=== PATIENT | female | born 1990 | race Caucasian/White ===

== ENCOUNTER 2017-10-30 23:42 | Emergency (ER) | payer MEDICAID ==
[~2017-10-30] VITALS: Ht 160 cm; Wt 68.2 kg
[2017-10-30 23:43] VITALS: BP 124/86
[2017-10-31 00:04] LABS: BASOPHILS % (AUTO) 0.8 % (0.0-2.0); HEMATOCRIT 41.2 % (36-46); HEMOGLOBIN 14.2 g/dL (12.0-16.0); MEAN CORPUSCULAR HEMOGLOBIN 31.6 pg (26.0-34.0); MEAN CORPUSCULAR HGB CONC 34.4 G/dL (31.0-37.0); MEAN CORPUSCULAR VOLUME 92 fL (80-100); MONOCYTES # (AUTO) 0.8 K/uL (0.1-1.0); MONOCYTES % (AUTO) 8.1 % (2.0-9.0); NEUTROPHILS # (AUTO) 6.6 K/uL (1.8-7.7); NEUTROPHILS % (AUTO) 69.1 % (40.0-70.0); PLATELET COUNT (AUTO) 335 K/uL (150-450); RED BLOOD CELL COUNT(AUTO) 4.49 MIL/uL (4.00-5.20); RED CELL DISTRIBUTION WIDTH 13.4 % (11.5-14.5)
[2017-10-31 00:20] LABS: ANION GAP 5 mmol/L (8-16); CALCIUM, TOTAL 8.4 mg/dL (8.8-10.5); CARBON DIOXIDE 31 mmol/L (22-29); CHLORIDE 103 mmol/L (98-107); CREATININE 0.66 mg/dL (0.60-1.30); GLOMERULAR FILTR. RATE CALC > 60 mL/min (>60); GLUCOSE,RANDOM 109 mg/dL (70-110); POTASSIUM 3.8 mmol/L (3.5-5.1); SODIUM SERUM 139 mmol/L (136-145); UREA NITROGEN, BLOOD 11 mg/dL (7-18)
[2017-10-31 00:26] LABS: ALANINE AMINOTRANSFERASE 20 U/L (12-78); ALBUMIN 3.6 g/dL (3.4-5.0); ALKALINE PHOSPHATASE 78 U/L (46-116); ASPARTATE AMINOTRANSFERASE 22 U/L (15-37); BILIRUBIN,TOTAL 0.1 mg/dL (0.1-1.0); LIPASE 103 U/L (73-393); TOTAL PROTEIN, SERUM 7.1 g/dL (6.4-8.2)
[2017-10-31 01:56] LABS: APPEARANCE,URINE CLOUDY (CLEAR); BILIRUBIN,URINE NEGATIVE (NEGATIVE); GLUCOSE, URINE (UA) NEGATIVE (NEGATIVE); KETONES,URINE NEGATIVE (NEGATIVE); LEUKOCYTE ESTERASE ,URINE NEGATIVE (NEGATIVE); NITRATE,URINE POSITIVE (NEGATIVE); OCCULT BLOOD,URINE NEGATIVE (NEGATIVE); PH,URINE 7.5 (5.0-8.0); PROTEIN,URINE NEGATIVE (NEGATIVE); UROBILINOGEN,URINE 0.2 mg/dL (<=1.0)
[2017-10-31 02:19] LABS: BACTERIA,URINE Many /HPF (None Seen)
[2017-10-31 02:20] LABS: RBC,URINE None Seen /HPF (0-2); SQUAMOUS EPITHELIAL CELL,UR Moderate /LPF (None Seen); WBC,URINE 0-2 /HPF (0-5)
== END 2017-10-31 02:26 | disposition left against medical advice (07) ==
LOC: EMS 23:43
DX: Z53.21 Procedure and treatment not carried out due to patient leaving prior to being seen by health care provider (principal)
CPT/HCPCS: 87086; 99281

== ENCOUNTER 2018-11-01 20:51 | Inpatient (IN) | payer OTHER ==
[~2018-11-01] VITALS: Ht 160 cm; Wt 81.7 kg
[2018-11-01] MEDS ORDERED: RINGERS SOLUTION,LACTATED 1,000 ML IV PRN (21:46)
[2018-11-01] MEDS ORDERED: OXYTOCIN 30 UNITS/LACT RINGERS 500 ML IV ONE (21:46)
[2018-11-01 21:51] VITALS: BP 126/70
[2018-11-01] MEDS ORDERED: RANI150C4 PO (21:55)
[2018-11-01] MEDS ORDERED: PREN1TAB80 PO (21:56)
[2018-11-01] MEDS ORDERED: METOCLOPRAMIDE HCL 5 MG/ML 2 ML VIAL IVP PRN (22:00)
[2018-11-01] MEDS ORDERED: CITRIC ACID/SODIUM CITRATE 30 ML SOLUTION UDCUP PO PRN (22:00)
[2018-11-01] MEDS: RINGERS SOLUTION,LACTATED 1,000 ML IV SCH (22:19)
[2018-11-01 22:45] LABS: BASOPHILS % (AUTO) 0.5 % (0.0-2.0); EOSINOPHILS % (AUTO) 0.5 % (1.0-6.0); HEMOGLOBIN 11.3 g/dL (12.0-16.0); LYMPHOCYTES # (AUTO) 1.5 K/uL (1.0-4.8); LYMPHOCYTES % (AUTO) 14.9 % (22.0-44.0); MEAN CORPUSCULAR HEMOGLOBIN 29.3 pg (26.0-34.0); MEAN CORPUSCULAR HGB CONC 33.1 G/dL (31.0-37.0); MEAN CORPUSCULAR VOLUME 89 fL (80-100); MONOCYTES # (AUTO) 0.9 K/uL (0.1-1.0); MONOCYTES % (AUTO) 9.2 % (2.0-9.0); NEUTROPHILS # (AUTO) 7.4 K/uL (1.8-7.7); NEUTROPHILS % (AUTO) 74.9 % (40.0-70.0); PLATELET COUNT (AUTO)-OB 273 K/uL (150-450); RED BLOOD CELL COUNT(AUTO) 3.84 MIL/uL (4.00-5.20); RED CELL DISTRIBUTION WIDTH 14.6 % (11.5-14.5)
[2018-11-02] MEDS: RINGERS SOLUTION,LACTATED 1,000 ML IV SCH ×3 (00:16→10:41)
[2018-11-02] MEDS ORDERED: MISOPROSTOL 25 MCG TABLET PO ONE ×2 (00:30→04:45)
[2018-11-02] MEDS: FentaNYL CITRATE-PF 100 MCG/2 ML VIAL IVP PRN ×3 (04:44→07:36)
[2018-11-02] MEDS ORDERED: OXYGEN THERAPY IH SCH (08:00)
[2018-11-02] MEDS ORDERED: ROPIVACAINE HCL/PF 0.2% 100 ML ED ONE (08:50)
[2018-11-02] MEDS ORDERED: ROPIVACAINE HCL/PF 0.2% 100 ML ED PRN (09:15)
[2018-11-02] MEDS ORDERED: DiphenhydrAMINE HCL 50 MG/ML VIAL IVP PRN (09:15)
[2018-11-02] MEDS ORDERED: ONDANSETRON HCL 4 MG/2 ML VIAL IVP PRN (09:15)
[2018-11-02] MEDS ORDERED: OXYTOCIN 30 UNITS/LACT RINGERS 500 ML IV PRN (10:41)
[2018-11-02] MEDS ORDERED: GLYCERIN/WITCH HAZEL LEAF 40 PADS JAR TP PRN (12:45)
[2018-11-02] MEDS ORDERED: BENZOCAINE 20%/MENTHOL 56 GM SPRAY CANISTER TP PRN (12:45)
[2018-11-02] MEDS ORDERED: ACETAMINOPHEN/CODEINE 300-30 MG TABLET PO PRN (12:45)
[2018-11-02] MEDS ORDERED: LANOLIN 7 GM OINTMENT TP PRN (12:45)
[2018-11-02] MEDS: IBUPROFEN 800 MG TABLET PO SCH ×2 (14:50→20:20)
[2018-11-02] MEDS: MAGNESIUM HYDROXIDE SUSPENSION 30 ML UDCUP PO SCH (20:20)
[2018-11-03] MEDS: IBUPROFEN 800 MG TABLET PO SCH ×2 (03:02→09:12)
[2018-11-03] MEDS: MAGNESIUM HYDROXIDE SUSPENSION 30 ML UDCUP PO SCH (08:05)
[2018-11-03] MEDS: ACETAMINOPHEN/CODEINE 300-30 MG TABLET PO PRN ×2 (08:05→12:45)
[2018-11-03] MEDS ORDERED: IBUP-2071 PO (13:37)
[2018-11-03] MEDS ORDERED: SENNA/DOCUSATE SODIUM 8.6-50 MG TABLET PO ONE (13:45)
== END 2018-11-03 14:15 | disposition home or self-care (01) | DRG 560 ==
LOC: 4S 20:51 → OBSVTOIN 20:51
PROVIDERS: ADMIT Obstetrics & Gynecology; ATTEND Obstetrics & Gynecology
PROC: 10D07Z6 Extraction of Products of Conception, Vacuum, Via Natural or Artificial Opening (ICD-10-PCS; principal; 2018-11-02)
PROC: 3E0R3BZ Introduction of Anesthetic Agent into Spinal Canal, Percutaneous Approach (ICD-10-PCS; 2018-11-02)
PROC: 00HU33Z Insertion of Infusion Device into Spinal Canal, Percutaneous Approach (ICD-10-PCS; 2018-11-02)
DX: O66.5 Attempted application of vacuum extractor and forceps (principal); Z37.0 Single live birth; Z3A.39 39 weeks gestation of pregnancy
CPT/HCPCS: 86850; 86900; 86901; J2405; J2590; J2795; J3010; J7120

== ENCOUNTER 2018-11-09 14:04 | Inpatient (IN) | payer OTHER ==
[~2018-11-09] VITALS: Ht 160 cm; Wt 77.3 kg
[~2018-11-09 14:04] MED LIST: IBUP-2071 PO; PREN1TAB80 PO
[2018-11-09] MEDS ORDERED: METOCLOPRAMIDE HCL 5 MG/ML 2 ML VIAL IVP ONE (15:00)
[2018-11-09] MEDS ORDERED: SODIUM CHLORIDE 0.9% 1,000 ML IV ONE (15:00)
[2018-11-09] MEDS ORDERED: DiphenhydrAMINE HCL 50 MG/ML VIAL IVP ONE (15:00)
[2018-11-09 15:30] LABS: BASOPHILS % (AUTO) 0.7 % (0.0-2.0); EOSINOPHILS % (AUTO) 2.3 % (1.0-6.0); HEMATOCRIT 38.2 % (36-46); HEMOGLOBIN 12.5 g/dL (12.0-16.0); LYMPHOCYTES # (AUTO) 1.2 K/uL (1.0-4.8); LYMPHOCYTES % (AUTO) 16.2 % (22.0-44.0); MEAN CORPUSCULAR HEMOGLOBIN 29.8 pg (26.0-34.0); MEAN CORPUSCULAR HGB CONC 32.8 G/dL (31.0-37.0); MEAN CORPUSCULAR VOLUME 91 fL (80-100); MONOCYTES # (AUTO) 0.8 K/uL (0.1-1.0); MONOCYTES % (AUTO) 10.6 % (2.0-9.0); NEUTROPHILS # (AUTO) 5.3 K/uL (1.8-7.7); NEUTROPHILS % (AUTO) 70.2 % (40.0-70.0); PLATELET COUNT (AUTO) 397 K/uL (150-450); RED BLOOD CELL COUNT(AUTO) 4.22 MIL/uL (4.00-5.20); RED CELL DISTRIBUTION WIDTH 14.9 % (11.5-14.5)
[2018-11-09 15:38] LABS: ANION GAP 11 mmol/L (8-16); CALCIUM, TOTAL 8.8 mg/dL (8.8-10.5); CARBON DIOXIDE 25 mmol/L (22-29); CHLORIDE 105 mmol/L (98-107); CREATININE 0.74 mg/dL (0.60-1.30); GLOMERULAR FILTR. RATE CALC > 60 mL/min (>60); GLUCOSE,RANDOM 88 mg/dL (70-110); POTASSIUM 3.8 mmol/L (3.5-5.1); SODIUM SERUM 141 mmol/L (136-145); UREA NITROGEN, BLOOD 11 mg/dL (7-18)
[2018-11-09 15:42] LABS: ALANINE AMINOTRANSFERASE 139 U/L (12-78); ALBUMIN 2.8 g/dL (3.4-5.0); ALKALINE PHOSPHATASE 153 U/L (46-116); ASPARTATE AMINOTRANSFERASE 62 U/L (15-37); BILIRUBIN,TOTAL 0.2 mg/dL (0.1-1.0)
[2018-11-09] MEDS ORDERED: HydrALAZINE HCL 20 MG/ML VIAL IVP ONE (16:45)
[2018-11-09 16:47] LABS: APPEARANCE,URINE CLEAR (CLEAR); BILIRUBIN,URINE NEGATIVE (NEGATIVE); GLUCOSE, URINE (UA) NEGATIVE (NEGATIVE); KETONES,URINE NEGATIVE (NEGATIVE); LEUKOCYTE ESTERASE ,URINE MODERATE (NEGATIVE); NITRATE,URINE NEGATIVE (NEGATIVE); OCCULT BLOOD,URINE LARGE (NEGATIVE); PH,URINE 6.5 (5.0-8.0); PROTEIN,URINE NEGATIVE (NEGATIVE); UROBILINOGEN,URINE 0.2 mg/dL (<=1.0)
[2018-11-09] MEDS ORDERED: NIFEdipine 10 MG CAPSULE PO ONE (17:00)
[2018-11-09 17:08] LABS: RBC,URINE 0-2 /HPF (0-2)
[2018-11-09 17:09] LABS: BACTERIA,URINE None Seen /HPF (None Seen); SQUAMOUS EPITHELIAL CELL,UR Few /LPF (None Seen)
[2018-11-09 17:10] LABS: TRANSITIONAL EPI CELLS,URINE Few /LPF (None Seen)
[2018-11-09] MEDS ORDERED: MAGNESIUM SULFATE 4 GM/WATER 100 ML IV ONE (17:30)
[2018-11-09] MEDS ORDERED: DIAZEPAM 5 MG/ML 2 ML SYRINGE IVP ONE (18:00)
[2018-11-09] MEDS ORDERED: NITROFURANTOIN/NITROFURAN MAC 100 MG CAPSULE [MACROBID] PO ONE (18:30)
[2018-11-09 19:30] VITALS: BP 104/59
[2018-11-09] MEDS ORDERED: MAGNESIUM SULFATE 500 ML IV SCH (21:00)
[2018-11-09] MEDS ORDERED: CALCIUM GLUCONATE 100 MG/ML 10 ML IVP PRN (21:00)
[2018-11-09] MEDS ORDERED: CITRIC ACID/SODIUM CITRATE 30 ML SOLUTION UDCUP PO PRN (21:00)
[2018-11-10] MEDS: ACETAMINOPHEN 500 MG TABLET PO PRN ×4 (02:50→21:09)
[2018-11-10 04:32] LABS: BASOPHILS % (AUTO) 0.6 % (0.0-2.0); EOSINOPHILS % (AUTO) 1.2 % (1.0-6.0); HEMATOCRIT 41.1 % (36-46); HEMOGLOBIN 13.4 g/dL (12.0-16.0); LYMPHOCYTES # (AUTO) 1.4 K/uL (1.0-4.8); LYMPHOCYTES % (AUTO) 14.1 % (22.0-44.0); MEAN CORPUSCULAR HEMOGLOBIN 29.5 pg (26.0-34.0); MEAN CORPUSCULAR HGB CONC 32.5 G/dL (31.0-37.0); MEAN CORPUSCULAR VOLUME 91 fL (80-100); MONOCYTES % (AUTO) 9.8 % (2.0-9.0); NEUTROPHILS # (AUTO) 7.5 K/uL (1.8-7.7); NEUTROPHILS % (AUTO) 74.3 % (40.0-70.0); PLATELET COUNT (AUTO)-OB 403 K/uL (150-450); RED BLOOD CELL COUNT(AUTO) 4.53 MIL/uL (4.00-5.20)
[2018-11-10 04:47] LABS: ALANINE AMINOTRANSFERASE 122 U/L (12-78); ALBUMIN 2.8 g/dL (3.4-5.0); ALKALINE PHOSPHATASE 161 U/L (46-116); ANION GAP 10 mmol/L (8-16); ASPARTATE AMINOTRANSFERASE 49 U/L (15-37); BILIRUBIN,TOTAL 0.3 mg/dL (0.1-1.0); CARBON DIOXIDE 25 mmol/L (22-29); CHLORIDE 103 mmol/L (98-107); CREATININE 0.58 mg/dL (0.60-1.30); GLOMERULAR FILTR. RATE CALC > 60 mL/min (>60); GLUCOSE,RANDOM 99 mg/dL (70-110); POTASSIUM 3.7 mmol/L (3.5-5.1); SODIUM SERUM 138 mmol/L (136-145); TOTAL PROTEIN, SERUM 7.2 g/dL (6.4-8.2); UREA NITROGEN, BLOOD 7 mg/dL (7-18); URIC ACID 4.8 mg/dL (2.6-7.2)
[2018-11-10] MEDS ORDERED: OXYGEN THERAPY IH SCH (08:00)
[2018-11-10] MEDS: RINGERS SOLUTION,LACTATED 1,000 ML IV SCH ×2 (08:07→23:45)
[2018-11-10] MEDS: NIFEdipine 30 MG ER TABLET PO SCH ×2 (09:20→21:08)
[2018-11-11] MEDS: ACETAMINOPHEN 500 MG TABLET PO PRN (04:58)
[2018-11-11] MEDS: NIFEdipine 30 MG ER TABLET PO SCH (09:09)
[2018-11-11] MEDS ORDERED: NIFE30TA5 PO (09:35)
== END 2018-11-11 10:41 | disposition home or self-care (01) | DRG 561 ==
LOC: EMS 14:05 → 4S 19:46
PROVIDERS: ADMIT Obstetrics & Gynecology; ATTEND Obstetrics & Gynecology
DX: O14.15 Severe pre-eclampsia, complicating the puerperium (principal); O86.20 Urinary tract infection following delivery, unspecified; O90.89 Other complications of the puerperium, not elsewhere classified; O16.5 Unspecified maternal hypertension, complicating the puerperium; G43.909 Migraine, unspecified, not intractable, without status migrainosus; H53.149 Visual discomfort, unspecified
CPT/HCPCS: 70450; 83735; 84550; 87086; 99291; J0360; J1200; J2765; J3475; J7030; J7120

== ENCOUNTER 2021-01-11 20:00 | Emergency (ER) | payer OTHER ==
[~2021-01-11] VITALS: Ht 160 cm; Wt 72.7 kg
[~2021-01-11 20:00] MED LIST changes: -IBUP-2071 PO; +NIFE30TA5 PO; -PREN1TAB80 PO
[2021-01-11 21:14] LABS: APPEARANCE,URINE CLEAR (CLEAR); BILIRUBIN,URINE NEGATIVE (NEGATIVE); GLUCOSE, URINE (UA) NEGATIVE (NEGATIVE); KETONES,URINE NEGATIVE (NEGATIVE); LEUKOCYTE ESTERASE ,URINE MODERATE (NEGATIVE); OCCULT BLOOD,URINE LARGE (NEGATIVE); PROTEIN,URINE TRACE (NEGATIVE); UROBILINOGEN,URINE 0.2 mg/dL (<=1.0)
[2021-01-11 21:21] LABS: BACTERIA,URINE Many /HPF (None Seen); NITRATE,URINE POSITIVE (NEGATIVE); RBC,URINE 26-50 /HPF (0-2); SQUAMOUS EPITHELIAL CELL,UR Moderate /LPF (None Seen); WBC,URINE 26-50 /HPF (0-5)
[2021-01-11] MEDS ORDERED: ACETAMINOPHEN 500 MG TABLET PO ONE (21:45)
[2021-01-11] MEDS ORDERED: PHENAZOPYRIDINE HCL 100 MG TABLET PO ONE (21:45)
[2021-01-11] MEDS ORDERED: CEPHALEXIN MONOHYDRATE 500 MG CAPSULE PO ONE (21:45)
[2021-01-11 22:19] VITALS: BP 133/82
== END 2021-01-11 23:04 | disposition home or self-care (01) ==
LOC: EMS 20:03
DX: N39.0 Urinary tract infection, site not specified (principal); F17.210 Nicotine dependence, cigarettes, uncomplicated; Z79.899 Other long term (current) drug therapy
CPT/HCPCS: 81001; 84703; 87077; 87086; 87186; 87491; 87591; 99283

== ENCOUNTER 2021-01-13 11:00 | Emergency (ER) | payer OTHER ==
[~2021-01-13] VITALS: Ht 160 cm; Wt 72.7 kg
[2021-01-13] MEDS ORDERED: ONDANSETRON HCL 4 MG/2 ML VIAL IVP ONE ×2 (13:30→18:45)
[2021-01-13] MEDS ORDERED: MORPHINE SULFATE 2 MG/ML SYRINGE IVP ONE ×2 (13:30→18:45)
[2021-01-13] MEDS ORDERED: BARIUM SULFATE 0.1% SUSPENSION 450 ML BOTTLE PO ONE (13:30)
[2021-01-13] MEDS ORDERED: SODIUM CHLORIDE 0.9% 1,000 ML IV ONE ×2 (13:30→18:00)
[2021-01-13 13:48] LABS: APPEARANCE,URINE CLOUDY (CLEAR); BILIRUBIN,URINE NEGATIVE (NEGATIVE); GLUCOSE, URINE (UA) NEGATIVE (NEGATIVE); KETONES,URINE NEGATIVE (NEGATIVE); LEUKOCYTE ESTERASE ,URINE TRACE (NEGATIVE); NITRATE,URINE POSITIVE (NEGATIVE); OCCULT BLOOD,URINE NEGATIVE (NEGATIVE); PH,URINE 5.5 (5.0-8.0); PROTEIN,URINE NEGATIVE (NEGATIVE)
[2021-01-13 13:50] LABS: BACTERIA,URINE Few /HPF (None Seen); RBC,URINE None Seen /HPF (0-2); WBC,URINE 0-2 /HPF (0-5)
[2021-01-13 14:12] LABS: BASOPHILS % (AUTO) 0.4 % (0.0-2.0); EOSINOPHILS % (AUTO) 0.9 % (1.0-6.0); HEMATOCRIT 41.8 % (36-46); LYMPHOCYTES # (AUTO) 1.6 K/uL (1.0-4.8); LYMPHOCYTES % (AUTO) 14.7 % (22.0-44.0); MEAN CORPUSCULAR HEMOGLOBIN 31.1 pg (26.0-34.0); MEAN CORPUSCULAR HGB CONC 33.5 G/dL (31.0-37.0); MEAN CORPUSCULAR VOLUME 93 fL (80-100); MONOCYTES # (AUTO) 0.8 K/uL (0.1-1.0); MONOCYTES % (AUTO) 7.6 % (2.0-9.0); NEUTROPHILS # (AUTO) 8.2 K/uL (1.8-7.7); NEUTROPHILS % (AUTO) 76.4 % (40.0-70.0); PLATELET COUNT (AUTO) 302 K/uL (150-450); RED CELL DISTRIBUTION WIDTH 12.8 % (11.5-14.5)
[2021-01-13 14:21] LABS: ANION GAP 5 mmol/L (8-16); CALCIUM, TOTAL 8.7 mg/dL (8.8-10.5); CARBON DIOXIDE 29 mmol/L (22-29); CHLORIDE 103 mmol/L (98-107); CREATININE 0.57 mg/dL (0.60-1.30); GLOMERULAR FILTR. RATE CALC > 60 mL/min (>60); GLUCOSE,RANDOM 122 mg/dL (70-110); SODIUM SERUM 137 mmol/L (136-145); UREA NITROGEN, BLOOD 11 mg/dL (7-18)
[2021-01-13 14:42] LABS: ALANINE AMINOTRANSFERASE 23 U/L (12-78); ALBUMIN 3.9 g/dL (3.4-5.0); ALKALINE PHOSPHATASE 78 U/L (46-116); ASPARTATE AMINOTRANSFERASE 17 U/L (15-37); BILIRUBIN,TOTAL 0.3 mg/dL (0.1-1.0); HCG,QUANTITATIVE < 1 mIU/mL (0-6); LIPASE 78 U/L (73-393); TOTAL PROTEIN, SERUM 7.8 g/dL (6.4-8.2)
[2021-01-13] MEDS ORDERED: IOHEXOL 350 MG/ML 100 ML VIAL ONE (16:12)
[2021-01-13] MEDS ORDERED: SODIUM CHLORIDE 0.9% 100 ML ONE (16:12)
[2021-01-13] MEDS ORDERED: PIPERACILLIN/TAZO 3.375 GM/D5W 50 ML IV ONE (18:00)
[2021-01-13] MEDS ORDERED: HYDROCODONE/ACETAMINOPHEN 5-325 MG TABLET PO ONE (19:15)
[2021-01-13 20:29] VITALS: BP 107/67
== END 2021-01-13 20:53 | disposition home or self-care (01) ==
LOC: EMS 11:03
DX: K63.89 Other specified diseases of intestine (principal); N39.0 Urinary tract infection, site not specified; F17.210 Nicotine dependence, cigarettes, uncomplicated; Z79.899 Other long term (current) drug therapy
CPT/HCPCS: 36415; 74177; 80053; 81001; 83690; 84702; 84703; 85025; 96361; 96365; 96375; 96376; 99285; A9575; J2270; J2405; J2543; J7030; J7050; Q9967

== ENCOUNTER 2022-04-06 15:46 | Emergency (ER) | payer OTHER ==
[~2022-04-06] VITALS: Ht 160 cm; Wt 71.8 kg
[~2022-04-06 15:46] MED LIST changes: +NIFE-141 PO; -NIFE30TA5 PO
[2022-04-06] MEDS ORDERED: CRAN1CAP5 PO (15:48)
[2022-04-06 16:02] LABS: APPEARANCE,URINE HAZY (CLEAR); BILIRUBIN,URINE NEGATIVE (NEGATIVE); GLUCOSE, URINE (UA) NEGATIVE (NEGATIVE); KETONES,URINE NEGATIVE (NEGATIVE); LEUKOCYTE ESTERASE ,URINE LARGE (NEGATIVE); NITRATE,URINE POSITIVE (NEGATIVE); OCCULT BLOOD,URINE NEGATIVE (NEGATIVE); PROTEIN,URINE 30-70 mg/dL (NEGATIVE); SPECIFIC GRAVITIY, URINE 1.017 (1.003-1.030)
[2022-04-06 16:24] LABS: BACTERIA,URINE Moderate /HPF (None Seen); RBC,URINE 0-2 /HPF (0-2); WBC,URINE 26-50 /HPF (0-5)
[2022-04-06 16:25] LABS: SQUAMOUS EPITHELIAL CELL,UR Few /LPF (None Seen)
[2022-04-06 16:30] VITALS: BP 115/70
[2022-04-06] MEDS ORDERED: PHEN-674 PO (17:11)
[2022-04-06] MEDS ORDERED: SULF-261 PO (17:12)
[2022-04-06] MEDS ORDERED: FLUC150T61 PO (17:13)
== END 2022-04-06 17:32 | disposition home or self-care (01) ==
LOC: EMS 15:46
DX: Z98.890 Other specified postprocedural states (principal)
CPT/HCPCS: 81001; 84703; 87086; 87186; 99283